=== PATIENT | male | born 1970 | race Caucasian/White ===

== ENCOUNTER 2019-11-22 17:38 | Emergency (ER) | payer BC ==
[~2019-11-22] VITALS: Ht 185.4 cm; Wt 158.8 kg
--- NOTE | 2019-11-22 18:46 | Emergency Department Note ---
History of Present Illnes History of Present Illness Chief Complaint: Abdominal Complaints History of Present Illness This is a 49 year old male . Chief Complaint Comment PT STATED HE IS HAVING TESTICULAR SWELLING WITH REDNESS AND PAIN X3 DAYS, PT DENIES INJURY, Historian: Patient Arrival Mode: Car Onset (how long ago): day(s) (2) Location: scrotum Quality: dull Radiation: Denies non-radiation, Denies back, Denies neck, Denies extremity, Denies abdomen, Denies periumbilical, Denies flank, Denies proximal, Denies distal, Denies other Severity: moderate Duration (how long): day(s) (2) Timing of current episode: constant Progression: unchanged Chronicity: new Context: Denies recent illness, Denies recent surgery, Denies recent immobilization, Denies recent travel, Denies trauma/injury, Denies new medi cations, Denies hx of DVT/PE, Denies non-compliance w/ medications, Denies other Relieving factors: none Exacerbating factors: none Associated symptoms: Denies denies other symptoms, Denies confusion, Denies chest pain, Denies cough, Denies diaphoresis, Denies fever/chills, Denies headaches, Denies loss of appetite, Denies malaise, Denies nausea/vomiting, Denies rash, Denies seizure, Denies shortness of breath, Denies syncope, Denies weakness, Denies other Treatments prior to arrival: none Past Medical/Family History Physician Review I have reviewed the patient's past medical and family history. Any updates have been documented here. Past Medical History Recent Fever: No Clinical Suspicion of Infectio: No New/Unexplained Change in Ment: No Past Medical History: Hypertension, CHF Past Surgical History: None Social History Smoking Cessation: Current every day smoker Counseling Performed: Yes Alcohol Use: Occasional Any Illegal Drug Use: No Physically hurt or threatened: No Other Any Pre-Existing Lines (PICC,: No Review of Systems Review of Systems Constitutional: Reports no symptoms EENTM: Reports no symptoms Cardiovascular: Reports no symptoms Respiratory: Reports no symptoms Gastrointestinal: Reports no symptoms Genitourinary: Reports as per HPI Musculoskeletal: Reports no symptoms Integumentary: Reports no symptoms Neurological: Reports no symptoms Psychological: Reports no symptoms Endocrine: Reports no symptoms Hematological/Lymphatic: Reports no symptoms Physical Exam Related Data Allergies: Coded Allergies: No Known Allergies (Unverified , 7/15/20) Triage Vital Signs Vital Signs Date Time Temp Pulse Resp B/P (MAP) Pulse Ox O2 Delivery O2 Flow Rate FiO2 11/22/19 17:50 98.6 99 19 166/99 93 Room Air Vital signs reviewed: Yes Physical Exam CONSTITUTIONAL Constitutional: Present well-developed, Present well-nourished HENT HENT: Present normocephalic, Present atraumatic, Present oropharynx clear/moist, Present nose normal HENT L/R: Present left ext ear normal, Present right ext ear normal EYES Eyes: Reports PERRL, Reports conjunctivae normal NECK Neck: Present ROM normal PULMONARY Pulmonary: Present effort normal, Present breath sounds normal CARDIOVASCULAR Cardiovascular: Present regular rhythm, Present heart sounds normal, Present capillary refill normal, Present normal rate GASTROINTESTINAL Abdominal: Present soft, Present nontender, Present bowel sounds normal GENITOURINARY Genitourinary: Present other (swelling and tenderness) SKIN Skin: Present warm, Present dry MUSCULOSKELETAL Musculoskeletal: Present ROM normal NEUROLOGICAL Neurological: Present alert, Present oriented x 3, Present no gross motor or sensory deficits PSYCHOLOGICAL Psychological: Present mood/affect normal, Present judgement normal Results Laboratory Lab results reviewed: Yes Imaging Imaging results reviewed: Yes Assessment & Plan Medical Decision Making MDM cellulitis torsion Reassessment Reassessment time: 19:27 Reassessment better Assessment & Plan Final Impression: (1) Cellulitis, scrotum (2) Scrotal pain Depart Disposition: HOME, SELF-CARE Last Vital Signs Date Time Temp Pulse Resp B/P (MAP) Pulse Ox O2 Delivery O2 Flow Rate FiO2 11/22/19 17:50 98.6 99 19 166/99 93 11/22/19 17:50 Room Air RUDY LI MD Nov 22, 2019 18:46
[2019-11-22] MEDS ORDERED: CEFTRIAXONE SOD 1 GM/NS 50 ML 50 ML IV ONE ×2 (19:08→19:15)
[2019-11-22] MEDS ORDERED: CEFTRIAXONE SOD 1 GM VIAL IV ONE (19:15)
--- NOTE | 2019-11-22 19:25 | Diagnostic Imaging Report ---
EXAM: Scrotal Ultrasound with Duplex INDICATION: Scrotal pain and swelling. COMPARISON: None TECHNIQUE: Transverse and longitudinal images were obtained of the scrotum with grayscale imaging, color Doppler and spectral waveform analysis. FINDINGS: Right testis: Size: 3.9 x 2.8 x 2.6 cm, normal in size. Echogenicity: Normal Mass/Cysts: There is a right-sided hydrocele Left testis: Size: 2.9 x 4.6 x 3.5 cm, normal in size. Echogenicity: Normal Mass/Cysts: There is left-sided hydrocele Epididymis: Appearance: Normal in size without increased vascularity. The epididymis measure 1.6 x 1.1 x 1.5 cm and 1.9 x 1.0 x 1.0 cm on the right and left common aspect of the. Mass/Cysts: There is a right-sided epididymal cyst. Extratesticular: Masses: None Hydrocele: None Varicocele: None Others: There is diffuse scrotal skin thickening. Doppler: Normal arterial flow to both testes and symmetrical flow on color Doppler evaluation is seen. No evidence of testicular torsion. IMPRESSION: 1. No evidence of testicular torsion. 2. Bilateral hydrocele. 3. Right epididymal head cyst. 4. Diffuse scrotal skin thickening which can be seen with cellulitis in the proper clinical context. Signed by: Jeremy Stein MD on 11/22/2019 7:21 PM
[2019-11-22] MEDS ORDERED: LEVAQUIN500 MG PO (19:30)
[2019-11-22] MEDS ORDERED: CLEOCIN HCL150 MG PO (19:30)
[2019-11-22] MEDS ORDERED: TYLENOL WITH C1 EACH PO (19:30)
[2019-11-22 19:36] VITALS: BP 165/94
== END 2019-11-22 19:41 | disposition home or self-care (01) ==
LOC: FSED 18:00
DX: N50.82 Scrotal pain (principal); N49.2 Inflammatory disorders of scrotum; I10 Essential (primary) hypertension; I50.9 Heart failure, unspecified; F17.210 Nicotine dependence, cigarettes, uncomplicated
CPT/HCPCS: 76870; 80053; 83880; 85025; 99284; J0696

== ENCOUNTER 2019-11-27 17:50 | Emergency (ER) | payer BC ==
[~2019-11-27] VITALS: Ht 185.4 cm; Wt 158.8 kg
[~2019-11-27 17:50] MED LIST: CLEOCIN HCL150 MG PO; LEVAQUIN500 MG PO; TYLENOL WITH C1 EACH PO
--- NOTE | 2019-11-27 18:38 | Emergency Department Note ---
History of Present Illnes History of Present Illness Chief Complaint: Genitourinary History of Present Illness This is a 49 year old male c/o scrotal swelling tender. He was here 5 days ago for swelling, US was done which was negative for torsion, d/c home with Clindamycin but not getting better so he is here. He called his PCP told to come to ER. He declines admission for IV antibiotics. Historian: Patient Arrival Mode: Car Rn Enterostomal Required: No Onset (how long ago): day(s) (10-11 days) Radiation: Reports non-radiation Severity: moderate Onset quality: gradual Duration (how long): day(s) Progression: worsening Relieving factors: none Exacerbating factors: none Treatments prior to arrival: other (oral clinda) Previous service: medications given, tests performed Past Medical/Family History Physician Review I have reviewed the patient's past medical and family history. Any updates have been documented here. Past Medical History Recent Fever: No Clinical Suspicion of Infectio: No New/Unexplained Change in Ment: No Past Medical History: Hypertension, CHF Other Medical History: SERGIO Past Surgical History: None Social History Smoking Cessation: Unknown if ever smoked Alcohol Use: Social Any Illegal Drug Use: No TB Exposure/Symptoms: No Physically hurt or threatened: No Family History Family history of heart diseas: No Other Any Pre-Existing Lines (PICC,: No Review of Systems Review of Systems Constitutional: Reports no symptoms, Reports as per HPI EENTM: Reports no symptoms Cardiovascular: Reports no symptoms Respiratory: Reports other (SERGIO) Gastrointestinal: Reports no symptoms Genitourinary: Reports no symptoms Musculoskeletal: Reports no symptoms, Reports other (swelling in extremities) Integumentary: Reports no symptoms Neurological: Reports no symptoms Psychological: Reports no symptoms Endocrine: Reports no symptoms Hematological/Lymphatic: Reports no symptoms Physical Exam Related Data Allergies: Coded Allergies: No Known Allergies (Unverified , 11/22/19) Vital signs reviewed: Yes Physical Exam CONSTITUTIONAL Constitutional: Present well-developed, Present well-nourished, Present morbidly obese HENT HENT: Present normocephalic, Present atraumatic, Present oropharynx clear/moist, Present nose normal HENT L/R: Present left ext ear normal, Present right ext ear normal EYES Eyes: Reports PERRL, Reports conjunctivae normal NECK Neck: Present ROM normal PULMONARY Pulmonary: Present effort normal, Present breath sounds normal CARDIOVASCULAR Cardiovascular: Present regular rhythm, Present heart sounds normal, Present capillary refill normal, Present normal rate GASTROINTESTINAL Abdominal: Present soft, Present nontender, Present bowel sounds normal GENITOURINARY Genitourinary: Present other (swelling scrotal and red, slightly tender) SKIN Skin: Present warm, Present dry MUSCULOSKELETAL Musculoskeletal: Present edema, Present other (2 plus edema on both legs) NEUROLOGICAL Neurological: Present alert, Present oriented x 3, Present no gross motor or sensory deficits PSYCHOLOGICAL Psychological: Present mood/affect normal, Present judgement normal Results Laboratory Lab results reviewed: Yes Assessment & Plan Medical Decision Making MDM scrotal edema with secondary cellulitis Assessment & Plan Final Impression: (1) Cellulitis, scrotum (2) Scrotal edema Depart Disposition: HOME, SELF-[facility] Meds Active Scripts Furosemide (FUROSEMIDE) 40 Mg Tablet, 40 MG PO BID, #60 TAB Prov:ESTELLE CRESPO MD 11/27/19 Doxycycline Hyclate (DOXYCYCLINE HYCLATE) 100 Mg Capsule, 100 MG PO BID, #20 TAB 0 Refills Prov:ESTELLE CRESPO MD 11/27/19 Acetaminophen With Codeine (TYLENOL WITH CODEINE #3 TABLET) 1 Each Tablet, 300 MG PO BID, #15 TAB Prov:RUDY LI MD 11/22/19 Clindamycin Hcl (CLEOCIN HCL) 150 Mg Capsule, 300 MG PO QID, #40 CAP Prov:RUDY LI MD 11/22/19 Levofloxacin (LEVAQUIN) 500 Mg Tablet, 500 MG PO DAILY, #10 TAB 0 Refills Prov:RUDY LI MD 11/22/19 Medications in the ED IV Rocephin and IV lasix Physician Attestation Provider Attestation failed out patient treatment. I recommended patient to be admitted for IV abx, IV lasix and urology consult but he adamantly declined. ESTELLE CRESPO MD Nov 27, 2019 18:38
[2019-11-27] MEDS ORDERED: CEFTRIAXONE SOD 1 GM VIAL IV ONE (18:45)
[2019-11-27] MEDS ORDERED: FUROSEMIDE INJ 10 MG/ML 4 ML VIAL IV ONE (18:45)
[2019-11-27] MEDS ORDERED: CEFTRIAXONE SOD 1 GM VIAL ONE ×2 (18:51→19:18)
[2019-11-27] MEDS ORDERED: DOXYCYCLINE HY100 MG PO (18:53)
[2019-11-27] MEDS ORDERED: FUROSEMIDE40 MG PO (18:53)
[2019-11-27] MEDS ORDERED: CEFTRIAXONE SOD 2 GM/NS 100 ML 100 ML IV ONE (19:00)
[2019-11-27 19:43] VITALS: BP 147/74
== END 2019-11-27 19:44 | disposition home or self-care (01) ==
LOC: FSED 18:16
DX: N50.82 Scrotal pain (principal); N49.2 Inflammatory disorders of scrotum; I10 Essential (primary) hypertension; I50.9 Heart failure, unspecified; G47.33 Obstructive sleep apnea (adult) (pediatric)
CPT/HCPCS: 99283; J0696; J1940